=== PATIENT | female | born 1995 | race Caucasian/White ===

== ENCOUNTER 2016-09-24 14:00 | Outpatient (RCR) | payer BC | END 2016-10-26 08:00 | disposition home or self-care (01) | LOC: PT 14:00 | DX: M79.604 Pain in right leg (principal) | CPT/HCPCS: G0283-GP ==

== ENCOUNTER 2018-09-11 12:32 | Emergency (ER) | payer BC ==
[~2018-09-11] VITALS: Ht 162.6 cm; Wt 59.1 kg
[2018-09-11] MEDS ORDERED: NORGESTIMATE AN1 TA1 PO (12:40)
[2018-09-11 13:06] LABS: EOS % 0.2 % (1.0-5.0); HEMATOCRIT 41.8 % (37.0-47.0); LYMPH# 1.6 (1.50-4.00); MEAN CELL VOLUME 87 fl (78-100); MEAN CORPUSCULAR HEMOGLOBIN 29 pg (27-31); MEAN CORPUSCULAR HGB CONC 34 g/dL (33-37); MONO # 0.6 (0.20-0.80); NEU # 5.8 (1.40-6.50); PLATELET COUNT 403 K/mm3 (130-400); RED BLOOD COUNT 4.79 M/mm3 (4.10-5.30); RED CELL DISTRIBUTION WIDTH 12.7 % (11.5-14.5); WHITE BLOOD COUNT 8.1 K/mm3 (4.8-10.8)
[2018-09-11 13:30] LABS: CLUE CELLS NOT OBSERVED (Not Observd)
[2018-09-11 13:50] LABS: URINE APPEARANCE CLOUDY; URINE BILIRUBIN NEGATIVE (NEGATIVE); URINE COLOR YELLOW; URINE GLUCOSE NEGATIVE (NEGATIVE); URINE KETONE NEGATIVE (NEGATIVE); URINE NITRATE NEGATIVE (NEGATIVE); URINE PROTEIN(semi-quant) TRACE mg/dL (NEGATIVE); URINE UROBILINOGEN NORMAL (NORMAL)
[2018-09-11 13:51] LABS: URINE BLOOD 250 ery/uL (NEGATIVE); URINE LEUKOCYTE ESTERASE NEGATIVE (NEGATIVE)
[2018-09-11 15:12] VITALS: BP 107/66
== END 2018-09-11 15:17 | disposition home or self-care (01) ==
LOC: ED 12:32
PROVIDERS: Nurse Practitioner Primary Care
DX: N20.0 Calculus of kidney (principal); Z79.3 Long term (current) use of hormonal contraceptives; Z87.19 Personal history of other diseases of the digestive system
CPT/HCPCS: J1885; Q0111; Q9967